=== PATIENT | female | born 1950 | race African-American/Black ===

== ENCOUNTER → 2020-07-20 | Outpatient (CLI) | payer MEDICARE, OTHER ==
[2015-12-24 16:10] VITALS: BP 132/68
[~2020-07-20] MED LIST: ASCO500T53 PO; CALC500T54 PO; LISI1TAB23 PO; MAGN100T3 PO; MULT-245 PO; POTA10TA12 PO; VALA500T5 PO
--- NOTE | 2020-07-20 12:38 | RAD ---
EXAM: Chest, 2 views; left clavicle, 2 views. HISTORY: Left clavicle enlargement at sternoclavicular joint. COMPARISON: None. FINDINGS: 2 views of the chest and 2 views left clavicle are obtained. There is no infiltrate, pleura l effusion or pneumothorax. The heart is normal in size. There is a calcified granuloma within the ri ght mid thorax. There is multilevel endplate remodeling and anterior spurring involving the thoracic spine. No clavicle fracture is seen. There is no lytic or sclerotic osseous lesion. The acromioclavic ular joint is intact. There is mild glenohumeral joint spurring. IMPRESSION: No acute pulmonary or osseous finding. Electronically signed by: Jeanie Yeh MD (07/20/2020 12:35 PM) [id number]
== END ==
LOC: RAD 12:15
PROVIDERS: ATTEND Nurse Practitioner Family
DX: M75.80 Other shoulder lesions, unspecified shoulder (principal); M77.8 Other enthesopathies, not elsewhere classified; J84.10 Pulmonary fibrosis, unspecified
CPT/HCPCS: 71046; 73000

== ENCOUNTER 2021-03-07 14:14 | Emergency (ER) | payer MEDICARE, OTHER ==
[~2021-03-07] VITALS: Ht 170.2 cm; Wt 63.0 kg
[~2021-03-07 14:14] MED LIST changes: -LISI1TAB23 PO; +LISI1TAB35 PO
[2021-03-07] MEDS ORDERED: IV NORMAL SALINE 1,000ML 1,000 ML IV ONE (14:45)
[2021-03-07] MEDS ORDERED: ASPIRIN 325 MG TABLET PO ONE (14:45)
--- NOTE | 2021-03-07 14:57 | PHYS DOC ---
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 She has been on 7 weeks of chemo with her last dose on Saturday03/04/2021. She reports that after every dose she feels very bloated and has alternating diarrhea and constipation. Today she began to feel very bloated in her stomach and then felt a tingling sensation throughout her entire chest that radiated up into her neck. She denies nausea, vomiting, and shortness of breath with this but does report feeling dizzy or like she was going to pass out. This tingling sensation lasted about 45 minutes and was relieved shortly after she arrived in the emergency department. No reported alleviating or aggravating factors. Review of Systems: Review of Systems: Constitutional: Denies fever or chills Eyes: Denies redness or eye pain HENT: Denies nasal congestion or sore throat Respiratory: Denies cough or shortness of breath Cardiovascular: Denies chest pain or palpitations GI: Denies abdominal pain, nausea, or vomiting : Denies dysuria or hematuria Musculoskeletal: Denies back pain or joint pain Integument: Denies rash or skin lesions Neurologic: Denies headache, focal weakness or sensory changes Complete systems were reviewed and found to be within normal limits, except as documented in this note. Current Medications: Current Meds: Current Medications Medications (Trade) Dose Ordered [facility] Start Time Stop Time Status Last Admin Dose Admin Aspirin (Chasidy Aspirin) 325 mg 1X ONCE 03/07/21 14:45 03/07/21 14:46 UNV Sodium Chloride 1,000 ml @ 1,000 mls/hr 1X ONCE 03/07/21 14:45 03/07/21 15:44 UNV Allergies: Allergies: Allergies Coded Allergies Type Severity Reaction Last Updated Verified No Known Drug Allergies 11/26/14 No Physical Exam: PE: Constitutional: Well developed, well nourished, no acute distress, non-toxic appearance HENT: Normocephalic, atraumatic Eyes: PERRL, EOMI, conjunctiva normal, no discharge Neck: Normal range of motion, no tenderness, supple Lungs & Thorax: No respiratory distress, equal chest rise and fall, clear to auscultation b/l. Abdomen: slight distended, but soft, no tenderness to palpation Skin: Warm, dry, no erythema, no rash Back: No tenderness, no CVA tenderness Extremities: No tenderness, ROM intact, no edema Neurologic: Alert and oriented X 3, normal motor function, normal sensory function, no focal deficits noted Psychologic: Affect normal, judgment normal Current Patient Data: Vital Signs: Vital Signs Date Time Temp Pulse Resp B/P (MAP) Pulse Ox O2 Delivery O2 Flow Rate FiO2 03/07/21 14:25 97.7 66 20 136/64 (88) 97 EKG: EKG: @ 1432 Sinus bradycardia at 59bpm, no ST elevation, QRS 68ms, QT/QTc 398/398ms @ 1538 Sinus bradycardia at 56bpm, NO ST elevation, QRS 70ms, QT/QTc 426/414ms Radiology/Procedures: Radiology/Procedures: PROCEDURE: CHEST AP ONLY EXAM: Chest, single view. HISTORY: Chest discomfort. COMPARISON: 07/20/2020. FINDINGS: A frontal view of the chest obtained. There is lingular and bilateral lower lobe atelectasis or interstitial infiltrate. There is no consolidation, pleural effusion or pneumothorax. The heart is normal in size. IMPRESSION: Lingular and bilateral lower lobe atelectasis or interstitial infiltrate. Electronically signed by: Jeanie Yeh MD (03/07/2021 3:08 PM) [id number] Heart Score: C/O Chest Pain: Yes HEART Score for Chest Pain: HEART Score for Chest Pain Response (Comments) Value History Slighlty/Non-Suspicious 0 ECG Normal 0 Age > 65 2 Risk Factors 1 or 2 Risk Factors 1 Troponin < Normal Limit 0 Total 3 Risk Factors: Risk Factors: DM, Current or recent (<one month) smoker, HTN, HLP, family history of CAD, obesity. Risk Scores: Score 0 - 3: 2.5% MACE over next 6 weeks - Discharge Home Score 4 - 6: 20.3% MACE over next 6 weeks - Admit for Clinical Observation Score 7 - 10: 72.7% MACE over next 6 weeks - Early Invasive Strategies Course & Med Decision Making: Course & Med Decision Making Pertinent Labs and Imaging studies reviewed. (See chart for details) Patient is a 70-year-old female with a past medical history of hypertension and amyloidosis of the GI tract currently on chemo presenting for tingling sensation throughout her chest and neck. Heart score of 3. EKG showed no acute ST segment changes. CBC was unremarkable. CMP was significant for hypokalemia of 3.0 and hy pomagnesemia of 1.7, troponin negative, CXR showed evidence of atelectasis, but no cardiomegaly or aortic aneurysm. Patient reported improvement in her symptoms. All findings suggest there is no emergent cause of her chest discomfort. Patient received 325 mg aspirin and repletion of potassium and magnesium. Will refer to cardiology for further workup as needed. Patient stable for discharge with outpatient follow-up with PCP. Discussed findings and plan with patient, who acknowledges understanding and agreement. Kings Disclaimer: Kings Disclaimer: This electronic medical record was generated, in whole or in part, using a voice recognition dictation system. Departure Departure: Impression: Primary Impression: Atypical chest pain Additional Impressions: Hypokalemia Hypomagnesemia Disposition: 01 HOME / SELF CARE / HOMELESS Condition: STABLE Referrals: ANABELLE LARSON METALLURGICAL ENGINEER- (PCP) RAMON AWAD MD Patient Instructions: Chest Pain (Nonspecific), [id number], Hypokalemia, Hypomagnesemia, Potassium Content of Foods MELISSA DOUGLAS DO Mar 07, 2021 14:57
[2021-03-07 15:06] LABS: BASO % 0 % (0-3); EOS % 1 % (0-3); HEMATOCRIT 39.1 % (36.0-47.0); HEMOGLOBIN 12.9 g/dL (12.0-15.5); LYMPH # 0.8 x10^3/uL (1.0-4.8); LYMPH % 15 % (24-48); MEAN CORPUSCULAR HEMOGLOBIN 33 pg (25-35); MEAN CORPUSCULAR HGB CONC 33 g/dL (31-37); MEAN CORPUSCULAR VOLUME 100 fL (79-100); MONO # 0.9 x10^3/uL (0.0-1.1); MONO % 17 % (0-9); NEUT # 3.6 x10^3uL (1.8-7.7); NEUT % 67 % (31-73); PLATELET COUNT 124 x10^3/uL (140-400); RED CELL DISTRIBUTION WIDTH 14.6 % (11.5-14.5); WHITE BLOOD COUNT 5.3 x10^3/uL (4.0-11.0)
--- NOTE | 2021-03-07 15:10 | RAD ---
EXAM: Chest, single view. HISTORY: Chest discomfort. COMPARISON: 07/20/2020. FINDINGS: A frontal view of the chest obtained. There is lingular and bilateral lower lobe atelectasi s or interstitial infiltrate. There is no consolidation, pleural effusion or pneumothorax. The heart is normal in size. IMPRESSION: Lingular and bilateral lower lobe atelectasis or interstitial infiltrate. Electronically signed by: Jeanie Yeh MD (03/07/2021 3:08 PM) [id number]
--- NOTE | 2021-03-07 15:30 | EKG ---
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
[2021-03-07 15:46] LABS: ALBUMIN 3.3 g/dL (3.4-5.0); ALBUMIN/GLOBULIN RATIO 1.2 (1.0-1.7); CALCIUM 8.9 mg/dL (8.5-10.1); CREATININE 0.7 mg/dL (0.6-1.0); GFR 100.1; MAGNESIUM 1.7 mg/dL (1.8-2.4); TOTAL BILIRUBIN 0.5 mg/dL (0.2-1.0); TOTAL PROTEIN 6.1 g/dL (6.4-8.2)
--- NOTE | 2021-03-07 15:47 | EKG ---
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
[2021-03-07 16:57] LABS: BILIRUBIN,URINE NEG (NEG); CLARITY,URINE CLEAR; COLOR,URINE YELLOW; GLUCOSE,URINE NEG (NEG)
[2021-03-07 16:58] LABS: BACTERIA,URINE 0 /HPF (0-FEW); NITRITE,URINE NEG (NEG); RBC,URINE 0 /HPF (0-2); SQUAMOUS EPITHELIAL CELL,UR FEW /LPF; UROBILINOGEN,URINE 0.2 mg/dL (0.2 mg/dL); WBC,URINE 0 /HPF (0-4)
[2021-03-07] MEDS ORDERED: MAGNESIUM CHLORIDE ER 64 MG TABLET.ER PO ONE (17:00)
[2021-03-07] MEDS ORDERED: POTASSIUM BICARB 20 MEQ EFFERVESCENT TABLET. PO ONE (17:00)
[2021-03-07 17:25] VITALS: BP 159/77
== END 2021-03-07 17:30 | disposition home or self-care (01) ==
LOC: ER 14:14
DX: R07.89 Other chest pain (principal); E87.6 Hypokalemia; E83.42 Hypomagnesemia; I10 Essential (primary) hypertension
CPT/HCPCS: 36415; 71045; 80053; 81001; 82553; 83605; 83690; 83735; 84484; 85025; 93005; 96360; 99285; J7030

== ENCOUNTER 2021-08-31 14:02 | Emergency (ER) | payer MEDICARE, OTHER ==
[~2021-08-31] VITALS: Ht 170.2 cm; Wt 63.0 kg
--- NOTE | 2021-08-31 14:27 | PHYS DOC ---
Past History Past Medical History: Hypertension, Other Additional Past Medical Histor: Amyloidosis, currently on chemo (LUIS KENNEDY APRN) Past Surgical History: Other (LUIS KENNEDY APRN) Smoking: Non-smoker Alcohol Use: Occasionally Drug Use: None (LUIS KENNEDY APRN) General Adult EDM: Chief Complaint: CONSTIPATION HPI: HPI: Patient is a 70-year-old female who presents to the emergency department for constipation. Patient is also reporting rectal pressure. She reports that she had a very hard small bowel movement yesterday. She took 1 tablet of Senokot today. She denies any abdominal pain, fevers, blood in her stools, urinary symptoms. Patient has a history of amyloidosis and receives chemo once a month. (LUIS KENNEDY APRN) Review of Systems: Review of Systems: Constitutional: See HPI GI: See HPI : See HPI (LUIS KENNEDY APRN) Allergies: Allergies: Allergies Coded Allergies Type Severity Reaction Last Updated Verified No Known Drug Allergies 11/26/14 No (LUIS KENNEDY APRN) Physical Exam: PE: Constitutional: Well developed, well nourished, no acute distress, non-toxic appearance. [] HENT: Normocephalic, atraumatic, bilateral external ears normal, oropharynx moist, no oral exudates, nose normal. [] Eyes: PERRL, EOMI, conjunctiva normal, no discharge. [] Neck: Normal range of motion, no tenderness, supple, no stridor. [] Cardiovascular:Heart rate regular rhythm, no murmur [] Lungs & Thorax: Bilateral breath sounds clear to auscultation [] Abdomen: Bowel sounds normal, soft, no tenderness, no masses, no pulsatile masses. [] Skin: Warm, dry, no erythema, no rash. [] Back: No tenderness, normal range of motion Extremities: No tenderness, no cyanosis, no clubbing, ROM intact, no edema. [] Neurologic: Alert and oriented X 3, normal motor function, normal sensory function, no focal deficits noted. [] Psychologic: Affect normal, judgement normal, mood normal. [] (LUIS KENNEDY APRN) Current Patient Data: Vital Signs: Vital Signs Date Time Temp Pulse Resp B/P (MAP) Pulse Ox O2 Delivery O2 Flow Rate FiO2 08/31/21 14:09 77 18 124/91 (102) 98 Room Air (LUIS KENNEDY APRN) EKG: EKG: [] (LUIS KENNEDY APRN) Radiology/Procedures: Radiology/Procedures: []PROCEDURE: KUB XR ABDOMEN 1V History: Reason: rectal discomfort, constipation / Spl. Instructions: / History: Technique: Supine view the abdomen. Comparison: None. Findings: Mild small bowel gas. Air and stool throughout the colon. Moderate distal colonic and rectal stool burden. Lower lumbar spondylosis. Impression: 1. Nonobstructed bowel gas pattern. 2. Moderate colonic stool burden. Electronically signed by: Moe De Luna DO (08/31/2021 3:02 PM) [facility] DICTATED AND SIGNED BY: MOE DE LUNA DO DATE: 08/31/21 150 CC: LUIS KENNEDY APRN; ANABELLE LARSON LOZENGE MAKER HELPER-BC ~ (LUIS KENNEDY APRN) Heart Score: C/O Chest Pain: N/A Risk Factors: Risk Factors: DM, Current or recent (<one month) smoker, HTN, HLP, family history of CAD, obesity. Risk Scores: Score 0 - 3: 2.5% MACE over next 6 weeks - Discharge Home Score 4 - 6: 20.3% MACE over next 6 weeks - Admit for Clinical Observation Score 7 - 10: 72.7% MACE over next 6 weeks - Early Invasive Strategies (LUIS KENNEDY APRN) Course & Med Decision Making: Course & Med Decision Making Pertinent Labs and Imaging studies reviewed. (See chart for details) [] Patient presents to the emergency department for constipation. Last bowel movement was yesterday but it was small and hard. KUB performed to rule out obstruction. X-ray shows constipation but no obstructive bowel gas pattern. Patient will be discharged home with an enema to take and she is advised to follow-up with her primary care provider. Advised in the future to add MiraLAX daily. I discussed with patient all findings and diagnostic testing as well as the need to follow-up with PCP for further evaluation and treatment or return to the ER if any new or worsening symptoms. Strict return precautions were also discussed at length. Patient voiced understanding and agreement with the plan. Patient is hemodynamically stable at the time of disposition. (LUIS KENNEDY APRN) Dragon Disclaimer: Dragon Disclaimer: This electronic medical record was generated, in whole or in part, using a voice recognition dictation system. (LUIS KENNEDY APRN) Attending Co-Sign The patient was seen and interviewed as well as examined at the bedside. The chart was reviewed. The case was discussed. Agree with the plan of care. (VALERY JOHNS DO) Departure Departure: Impression: Primary Impression: Constipation Qualified Codes: K59.00 - Constipation, unspecified Disposition: HOME / SELF CARE / HOMELESS Condition: GOOD Referrals: ANABELLE LARSON- (PCP) Patient Instructions: Constipation, Adult Additional Instructions: You are seen in the emergency department today for constipation. You were given an enema to use at home. I would also advise you to add MiraLAX daily. This will help soften your stools. Follow-up with your primary care provider deborah cavazos regarding your ER visit. Return to the emergency department if you develop abdominal pain, blood in your stools high fevers refractory to treatment or intractable nausea or vomiting. LUIS KENNEDY APRN Aug 31, 2021 14:27 VALERY JOHNS DO Sep 01, 2021 06:08
[2021-08-31] MEDS ORDERED: SODIUM PHOSPHATES 19/7GM 133 ML ENEMA. PR ONE (15:00)
--- NOTE | 2021-08-31 15:04 | RAD ---
XR ABDOMEN 1V History: Reason: rectal discomfort, constipation / Spl. Instructions: / History: Technique: Supine view the abdomen. Comparison: None. Findings: Mild small bowel gas. Air and stool throughout the colon. Moderate distal colonic and rectal stool bu rden. Lower lumbar spondylosis. Impression: 1. Nonobstructed bowel gas pattern. 2. Moderate colonic stool burden. Electronically signed by: Moe De Luna DO (08/31/2021 3:02 PM) BRYAN
== END 2021-08-31 16:02 | disposition home or self-care (01) ==
LOC: ER 14:02
DX: K59.00 Constipation, unspecified (principal); I10 Essential (primary) hypertension
CPT/HCPCS: 74018; 99283

== ENCOUNTER 2021-08-31 16:29 | Emergency (ER) | payer MEDICARE, OTHER ==
[~2021-08-31] VITALS: Ht 170.2 cm; Wt 63.0 kg
--- NOTE | 2021-08-31 16:39 | PHYS DOC ---
Past History Past Medical History: Hypertension, Other Additional Past Medical Histor: Amyloidosis, currently on chemo (LUIS KENNEDY APRN) Past Surgical History: Other (LUIS KENNEDY APRN) Smoking: Non-smoker Alcohol Use: Occasionally Drug Use: None (LUIS KENNEDY APRN) General Adult EDM: Chief Complaint: CONSTIPATION HPI: HPI: Patient is a 70-year-old female who presents to the emergency department today for constipation. Patient had just been discharged from the emergency department. At that time she did have an x-ray which did show moderate amount of stool she was given a enema to use at home and received enema instructions. Patient was discharged from the emergency department but feels that if she is being seen in the emergency department and having to pay the bill then nursing staff should perform the enema for her. Patient decided to check into the emergency department for ER nursing staff to give her an enema. (LUIS KENNEDY APRN) Review of Systems: Review of Systems: Constitutional: Denies fever or chills GI: Reports rectal pressure, denies abdominal pain : Denies dysuria (LUIS KENNEDY APRN) Allergies: Allergies: Allergies Coded Allergies Type Severity Reaction Last Updated Verified No Known Drug Allergies 11/26/14 No (LUIS KENNEDY APRN) Physical Exam: PE: Constitutional: Well developed, well nourished, no acute distress, non-toxic appearance. [] HENT: Normocephalic, atraumatic, bilateral external ears normal, oropharynx moist, no oral exudates, nose normal. [] Eyes: PERRL, EOMI, conjunctiva normal, no discharge. [] Neck: Normal range of motion, no tenderness, supple, no stridor. [] Cardiovascular:Heart rate regular rhythm, no murmur [] Lungs & Thorax: Bilateral breath sounds clear to auscultation [] Abdomen: Bowel sounds normal, soft, no tenderness, no masses, no pulsatile masses. [] Skin: Warm, dry, no erythema, no rash. [] Back: No tenderness, normal range of motion Extremities: No tenderness, no cyanosis, no clubbing, ROM intact, no edema. [] Neurologic: Alert and oriented X 3, normal motor function, normal sensory function, no focal deficits noted. [] Psychologic: Affect normal, judgement normal, mood normal. [] (LUIS KENNEDY APRN) EKG: EKG: [] (LUIS KENNEDY APRN) Radiology/Procedures: Radiology/Procedures: [] (LUIS KENNEDY APRN) Heart Score: C/O Chest Pain: N/A Risk Factors: Risk Factors: DM, Current or recent (<one month) smoker, HTN, HLP, family history of CAD, obesity. Risk Scores: Score 0 - 3: 2.5% MACE over next 6 weeks - Discharge Home Score 4 - 6: 20.3% MACE over next 6 weeks - Admit for Clinical Observation Score 7 - 10: 72.7% MACE over next 6 weeks - Early Invasive Strategies (LUIS KENNEDY APRN) Course & Med Decision Making: Course & Med Decision Making Pertinent Labs and Imaging studies reviewed. (See chart for details) Patient presents to the emergency department today for constipation. Patient had just been discharged from the emergency department. At that time she did have an x-ray which did show moderate amount of stool she was given a enema to use at home and received enema instructions. Patient was discharged from the emergency department but feels that if she is being seen in the emergency department and having to pay the bill then nursing staff should perform the enema for her. Patient decided to check into the emergency department for ER nursing staff to give her an enema. Patient given enema in the emergency department. She was able to have a bowel movement in the emergency department. She is advised to follow-up with her primary care provider and add MiraLAX daily. I discussed with patient all findings and diagnostic testing as well as the need to follow-up with PCP for further evaluation and treatment or return to the ER if any new or worsening symptoms. Strict return precautions were also discussed at length. Patient voiced understanding and agreement with the plan. Patient is hemodynamically stable at the time of disposition. (LUIS KENNEDY APRN) Dragon Disclaimer: Dragon Disclaimer: This electronic medical record was generated, in whole or in part, using a voice recognition dictation system. (LUIS KENNEDY APRN) Attending Co-Sign The patient was seen and interviewed as well as examined at the bedside. The chart was reviewed. The case was discussed. Agree with the plan of care. (VALERY JOHNS DO) Departure Departure: Impression: Primary Impression: Constipation Qualified Codes: K59.00 - Constipation, unspecified Disposition: HOME / SELF CARE / HOMELESS Condition: GOOD Referrals: ANABELLE LARSON (PCP) Patient Instructions: Constipation, Adult Additional Instructions: You were given an enema in the emergency department. Please add MiraLAX daily to soften your stools. Follow-up with your primary care provider tomorrow regarding your ER visit. Return to the emergency department if you develop abdominal pain, intractable nausea or vomiting, blood in your stools or vomit, high fevers refractory to treatment. [facility] Aug 31, 2021 16:39 VALERY JOHNS DO Sep 01, 2021 06:13
[2021-08-31 16:40] VITALS: BP 151/86
== END 2021-08-31 17:37 | disposition home or self-care (01) ==
LOC: ER 16:29
DX: K59.00 Constipation, unspecified (principal); I10 Essential (primary) hypertension
CPT/HCPCS: 99284